=== PATIENT | male | born 1955 | race Caucasian/White ===

== ENCOUNTER → 2016-08-07 | Outpatient (CLI) | payer MEDICAID ==
[~2016-08-07] MED LIST: ALLOPURINOL100 MG PO; AMOXICILLIN 50500 MG PO; ASPIRIN325 M1 PO; DARVOCET-N 1001 EACH PO; INDOCIN25 MG PO; NORCO 325 MG-101 TAB PO; NORVASC 10MG. T10 MG PO; PLAVIX75 MG PO; [UNRECOGNIZED DRUG - OTHER] MM
[2016-08-07 17:25] LABS: LYMPH % 39.7 % (10-50)
[2016-08-07 17:32] LABS: HEMOGLOBIN 12.8 g/dL (14.1-18.0)
[2016-08-07 17:37] LABS: URINE BILIRUBIN - DIPSTICK NEGATIVE (NEG); URINE BLOOD NEGATIVE (NEG)
[2016-08-07 17:49] LABS: URINE SQUAMOUS CELLS OCC #/hpf (OCC)
[2016-08-07 17:53] LABS: BUN 31 mg/dL (7-18)
[2016-08-07 17:58] LABS: GFR (ESTIMATED) 21 ML/MIN (>60)
== END ==
LOC: LAB 17:04
PROVIDERS: Emergency Medicine
DX: R53.83 Other fatigue (principal); R39.198 Other difficulties with micturition

== ENCOUNTER → 2017-01-27 | Outpatient (CLI) | payer MEDICAID ==
[~2017-01-27] MED LIST changes: +ASPIRIN ADULT L81 M3 PO; +CARDURA 4MG TABL4 MG PO; +CILOSTAZOL100 M1 PO; +CLONIDINE 0.2M0.2 MG PO; +CLOPIDOGREL75 M2 PO; +JANUVIA50 MG PO; +KEFLEX 500MG.500 MG PO; +METOPROLOL SUC100 M2 PO; +PLETAL PO; +RANITIDINE HCL150 MG PO; +SIMVASTATIN20 MG PO
== END ==
LOC: LAB 06:43
DX: E03.9 Hypothyroidism, unspecified (principal)